=== PATIENT | male | born 1985 | race Hispanic/Latino ===

== ENCOUNTER 2018-11-06 20:04 | Emergency (ER) | payer OTHER ==
[~2018-11-06] VITALS: Ht 182.9 cm; Wt 93.4 kg
--- OUTSIDE RECORDS SUMMARY | 2018-11-06 20:06 | XMS REPORT ---
Author Author [facility] Address Unknown Phone Unavailable Care Team Providers Care Boxing Promoter Name Role Phone Unavailable Unavailable Payers Payer Name Policy Type Policy Number Effective Date Expiration Date Problems This patient has no known problems. Allergies, Adverse Reactions, Alerts This patient has no known allergies or adverse reactions. Medications This patient has no known medications.
[2018-11-06] MEDS ORDERED: KETOROLAC TROMETHAMINE 60 MG/2 ML VIAL IM NR (20:30)
--- NOTE | 2018-11-06 20:56 | Diagnostic Imaging Report ---
Exam: Abdominal film Clinical History: Abdominal pain Comparison: None. DISCUSSION: Nonobstructive bowel gas pattern. No abnormal calcifications. No significant amount of retained stool. IMPRESSION: 1. Nonobstructive bowel gas pattern. Signed by: Dr. Anup Yates M.D. on 11/06/2018 8:52 PM
[2018-11-06 22:31] LABS: BILIRUBIN,URINE NEGATIVE (NEGATIVE); CLARITY,URINE CLEAR (CLEAR); COLOR,URINE STRAW (YELLOW); KETONES,URINE NEGATIVE (NEGATIVE); LEUKOCYTE ESTERASE ,URINE NEGATIVE (NEGATIVE); NITRITE,URINE NEGATIVE (NEGATIVE); PROTEIN,URINE DIPSTICK NEGATIVE (NEGATIVE); URINE UROBILINOGEN 0.2 mg/dL (0.2 - 1); WBC,URINE (MAN) 0-5 /HPF (0-5)
[2018-11-06 23:03] VITALS: BP 137/89
== END 2018-11-06 23:06 | disposition home or self-care (01) ==
LOC: ER 20:04
DX: R10.84 Generalized abdominal pain (principal)
CPT/HCPCS: 74018; 81001; 99283; J1885